=== PATIENT | female | born 1985 | race African-American/Black ===

== ENCOUNTER 2017-09-12 15:59 | Emergency (ER) | payer MEDICAID ==
[~2017-09-12] VITALS: Ht 170.2 cm; Wt 81.6 kg
[~2017-09-12 15:59] MED LIST: AMOX500T2 PO; HYDR-552 PO; IBUP-1955 PO
[2017-09-12] MEDS ORDERED: ONDANSETRON 4 MG/2 ML VIAL IV ONE (17:00)
[2017-09-12] MEDS ORDERED: IV NORMAL SALINE 1000 ML BAG IV ONE (17:00)
[2017-09-12] MEDS ORDERED: HYDROMORPHONE 1 MG/1 ML DISP.SYRIN IV ONE (17:00)
[2017-09-12] MEDS ORDERED: HYDROMORPHONE 2 MG/1 ML DISP.SYRIN ONE (17:06)
[2017-09-12] MEDS ORDERED: ONDANSETRON 4 MG/2 ML VIAL ONE (17:06)
[2017-09-12 17:10] LABS: *BILIRUBIN,URIN NEGATIVE (NEGATIVE); *BLOOD, URINE Trace-lysed (NEGATIVE); *CLARITY,URINE CLEAR (CLEAR); *COLOR,URINE YELLOW (YELLOW); *KETONES,URINE TRACE (NEGATIVE); *PROTEIN,URINE NEGATIVE (NEGATIVE); *UROBILINOGEN,URINE 0.2 E.U./dl (NORMAL); LEUKOCYTE ESTERASE ,URINE NEGATIVE (NEGATIVE); NITRITE, URINE NEGATIVE (NEGATIVE); UGLUCOSE NEGATIVE (NEGATIVE)
[2017-09-12 17:22] LABS: BACTERIA,URINE MODERATE /HPF (NONE SEEN); SQUAMOUS EPITHELIAL CELL,UR MODERATE /HPF (NONE SEEN); WBC,URINE 0-3 /HPF (0-3)
[2017-09-12 17:25] LABS: CREATININE 0.8 mg/dL (0.6-1.3); POTASSIUM 3.6 mmol/L (3.5-5.1)
[2017-09-12 17:26] LABS: BASOPHILS % (AUTO) 0.4 % (0.0-2.0); EOSINOPHILS # (AUTO) 0.1 K/uL (0.0-0.7); HEMATOCRIT 35.8 % (31.2-41.9); HEMOGLOBIN 12.3 g/dL (10.9-14.3); LYMPHOCYTES # (AUTO) 1.8 K/uL (20.0-40.0); LYMPHOCYTES % (AUTO) 23.1 % (20.5-51.5); MEAN CORPUSCULAR HEMOGLOBIN 33.5 uug (24.7-32.8); MEAN CORPUSCULAR HGB CONC 34 g/dL (32.3-35.6); MEAN CORPUSCULAR VOLUME 97.3 fL (75.5-95.3); MONOCYTES # (AUTO) 0.5 K/uL (2.0-10.0); MONOCYTES % (AUTO) 6.4 % (0.0-11.0); NEUTROPHILS # (AUTO) 5.5 K/uL (1.8-8.9); NEUTROPHILS % (AUTO) 69.1 % (38.5-71.5); PLATELET COUNT (AUTO) 212 K/uL (179-408); RED BLOOD CELL COUNT(AUTO) 3.67 MIL/uL (3.63-4.92); WHITE BLOOD COUNT (AUTO) 7.9 K/uL (3.8-11.8)
[2017-09-12 17:30] LABS: BILIRUBIN,DIRECT 0.1 mg/dL (0.0-0.2); BILIRUBIN,TOTAL 0.4 mg/dL (0.2-1.0); TOTAL PROTEIN, SERUM 7.3 g/dL (6.4-8.2)
--- NOTE | 2017-09-12 18:02 | NUR ---
Pt left ER for CT.
--- NOTE | 2017-09-12 19:18 | NUR ---
RECEIVED REPORT FROM RADHA VENTURA
--- NOTE | 2017-09-12 19:26 | NUR ---
PT IN BED. PT IS A&OX4. PT'S BREATH SOUNDS ARE REGULAR AND UNLABORED. NO SIGNS OF DISTRESS WITNESSED AT THIS TIME.
--- NOTE | 2017-09-12 19:35 | NUR ---
Patient discharged to home in stable conditon. Written and verbal after care instructions given. Patient verbalizes understanding of instructions. Patient reported reduced abdominal pain prior to discharge. Patient peripheral IV was removed. Patient able to ambulate unassisted with steady gait. Patient left with all personal belongings.
[2017-09-12 19:37] VITALS: BP 150/62
== END 2017-09-12 19:35 | disposition home or self-care (01) ==
LOC: ER 16:01
DX: R10.33 Periumbilical pain (principal); Z79.1 Long term (current) use of non-steroidal anti-inflammatories (NSAID); Z79.2 Long term (current) use of antibiotics; Z79.891 Long term (current) use of opiate analgesic
CPT/HCPCS: 36415; 74176; 80048; 80076; 81001; 83690; 84703; 85025; 96361; 96374; 96375; 99285; A4663; J1170; J2405

== ENCOUNTER 2017-10-04 23:05 | Emergency (ER) | payer MEDICAID ==
[~2017-10-04] VITALS: Ht 172.7 cm; Wt 81.6 kg
[2017-10-04] MEDS ORDERED: PIPERACILLIN/TAZO 4.5 GM VIAL IV ONE (23:08)
[2017-10-05] MEDS ORDERED: KETOROLAC TROMETHAMINE 30 MG INJ IM ONE
[2017-10-05] MEDS ORDERED: KETOROLAC TROMETHAMINE 30 MG INJ ONE (00:05)
[2017-10-05 00:14] LABS: BASOPHILS % (AUTO) 0.5 % (0.0-2.0); EOSINOPHILS # (AUTO) 0.1 K/uL (0.0-0.7); EOSINOPHILS % (AUTO) 0.7 % (0.0-7.0); HEMATOCRIT 34.1 % (31.2-41.9); HEMOGLOBIN 12.2 g/dL (10.9-14.3); LYMPHOCYTES # (AUTO) 1.8 K/uL (20.0-40.0); LYMPHOCYTES % (AUTO) 20.4 % (20.5-51.5); MEAN CORPUSCULAR HEMOGLOBIN 34.6 uug (24.7-32.8); MEAN CORPUSCULAR HGB CONC 36 g/dL (32.3-35.6); MEAN CORPUSCULAR VOLUME 96.4 fL (75.5-95.3); MONOCYTES # (AUTO) 0.5 K/uL (2.0-10.0); MONOCYTES % (AUTO) 5.1 % (0.0-11.0); NEUTROPHILS # (AUTO) 6.6 K/uL (1.8-8.9); NEUTROPHILS % (AUTO) 73.3 % (38.5-71.5); PLATELET COUNT (AUTO) 241 K/uL (179-408); RED BLOOD CELL COUNT(AUTO) 3.54 MIL/uL (3.63-4.92)
[2017-10-05 00:16] LABS: CREATININE 0.9 mg/dL (0.6-1.3); POTASSIUM 3.6 mmol/L (3.5-5.1)
[2017-10-05 00:29] LABS: BILIRUBIN,DIRECT 0.1 mg/dL (0.0-0.2); BILIRUBIN,TOTAL 0.4 mg/dL (0.2-1.0); TOTAL PROTEIN, SERUM 7.2 g/dL (6.4-8.2)
--- NOTE | 2017-10-05 01:50 | NUR ---
Patient discharged to home in stable conditon. Written and verbal after care instructions given. Patient verbalizes understanding of instructions. Pt left ER in steady gait accompanied by friend. All belongings with pt. VSS. No acute distress noted.
[2017-10-05] MEDS ORDERED: HYDROCODONE/APAP 5-325MG TABLET ONE (01:52)
[2017-10-05 05:34] VITALS: BP 109/77
[2017-10-06] MEDS ORDERED: HYDROCODONE/APAP 5-325MG TABLET PO ONE (02:45)
== END 2017-10-05 01:50 | disposition home or self-care (01) ==
LOC: ER 23:08
DX: J40 Bronchitis, not specified as acute or chronic (principal); M79.1 Myalgia; Z79.1 Long term (current) use of non-steroidal anti-inflammatories (NSAID); Z79.2 Long term (current) use of antibiotics; Z79.891 Long term (current) use of opiate analgesic
CPT/HCPCS: 36415; 71045; 80048; 80076; 83880; 84484; 84703; 85025; 85379; 85730; 93005; 96372; 99285; A4663; J1885; J2543; 70030-TC

== ENCOUNTER 2017-10-23 13:58 | Emergency (ER) | payer MEDICAID ==
[~2017-10-23] VITALS: Ht 172.7 cm; Wt 77.1 kg
[2017-10-23] MEDS ORDERED: KETOROLAC TROMETHAMINE 15 MG INJ IV ONE (14:30)
[2017-10-23] MEDS ORDERED: ONDANSETRON 4 MG/2 ML VIAL IV ONE (14:30)
[2017-10-23] MEDS ORDERED: IV NORMAL SALINE 1000 ML BAG IV ONE (14:30)
[2017-10-23] MEDS ORDERED: KETOROLAC TROMETHAMINE 30 MG INJ ONE (14:36)
[2017-10-23] MEDS ORDERED: ONDANSETRON 4 MG/2 ML VIAL ONE (14:36)
[2017-10-23 14:41] LABS: BASOPHILS % (AUTO) 0.6 % (0.0-2.0); EOSINOPHILS # (AUTO) 0.1 K/uL (0.0-0.7); HEMATOCRIT 39.3 % (31.2-41.9); HEMOGLOBIN 13.3 g/dL (10.9-14.3); LYMPHOCYTES # (AUTO) 1.4 K/uL (20.0-40.0); LYMPHOCYTES % (AUTO) 18.1 % (20.5-51.5); MEAN CORPUSCULAR HEMOGLOBIN 32.6 uug (24.7-32.8); MEAN CORPUSCULAR HGB CONC 34 g/dL (32.3-35.6); MEAN CORPUSCULAR VOLUME 96.5 fL (75.5-95.3); MONOCYTES # (AUTO) 0.5 K/uL (2.0-10.0); MONOCYTES % (AUTO) 6.6 % (0.0-11.0); NEUTROPHILS # (AUTO) 5.6 K/uL (1.8-8.9); NEUTROPHILS % (AUTO) 73.7 % (38.5-71.5); PLATELET COUNT (AUTO) 265 K/uL (179-408); RED BLOOD CELL COUNT(AUTO) 4.07 MIL/uL (3.63-4.92); WHITE BLOOD COUNT (AUTO) 7.5 K/uL (3.8-11.8)
[2017-10-23 14:46] LABS: CREATININE 0.8 mg/dL (0.6-1.3); POTASSIUM 4.2 mmol/L (3.5-5.1)
[2017-10-23 14:52] LABS: BILIRUBIN,DIRECT 0.1 mg/dL (0.0-0.2); BILIRUBIN,TOTAL 0.6 mg/dL (0.2-1.0)
--- NOTE | 2017-10-23 14:57 | NUR ---
PATIENT WAS SEEN BY MD FOR C/O ABDOMINAL PAIN AND NAUSEA. PAIN AND NAUSEA MEDS GIVEN ORDERED. PATIENT STATES PAIN AND NAUSEA HAVE DIMINISHED.
--- NOTE | 2017-10-23 15:18 | NUR ---
uRINE SENT TO LAB. PT STATES PAIN IS "BAD AGAIN". DR CRAMER IN ROOM SPEAKING TO PATIENT
[2017-10-23] MEDS ORDERED: MORPHINE SULFATE 2 MG/1 ML DISP.SYRIN IV ONE (15:30)
[2017-10-23] MEDS ORDERED: MORPHINE SULFATE 2 MG/1 ML DISP.SYRIN ONE (15:33)
[2017-10-23 15:58] LABS: *BILIRUBIN,URIN NEGATIVE (NEGATIVE); *BLOOD, URINE Trace-intact (NEGATIVE); *CLARITY,URINE SLIGHTLY CLOUDY (CLEAR); *COLOR,URINE YELLOW (YELLOW); *KETONES,URINE TRACE (NEGATIVE); *PROTEIN,URINE 1+ (NEGATIVE); *UROBILINOGEN,URINE 0.2 E.U./dl (NORMAL); LEUKOCYTE ESTERASE ,URINE NEGATIVE (NEGATIVE); NITRITE, URINE NEGATIVE (NEGATIVE); UGLUCOSE NEGATIVE (NEGATIVE)
[2017-10-23 16:05] LABS: *URINE HCG, QUAL NEGATIVE (NEGATIVE)
[2017-10-23 16:06] LABS: BACTERIA,URINE MODERATE /HPF (NONE SEEN); SQUAMOUS EPITHELIAL CELL,UR FEW /HPF (NONE SEEN)
--- NOTE | 2017-10-23 16:25 | NUR ---
PATIENT STATES PAIN HAS DIMINISHED SIGNIFICANTLY. SHE IS AWAKE AND ALERT.
--- NOTE | 2017-10-23 16:41 | NUR ---
IV DC'D, CATHETER TIP INTACT, PRESSURE APPLIED, DRESSING APPLIED. DC, RX (INCLUDING PRECAUTIONS) AND FOLLOW UP INSTRUCTIONS GIVEN AND EXPLAINED TO PATIENT WHO STATES SHE UNDERSTANDS ALL INSTRUCTIONS.
== END 2017-10-23 16:45 | disposition home or self-care (01) ==
LOC: ER 13:59
DX: K80.20 Calculus of gallbladder without cholecystitis without obstruction (principal); R19.7 Diarrhea, unspecified; Z79.1 Long term (current) use of non-steroidal anti-inflammatories (NSAID); Z79.2 Long term (current) use of antibiotics; Z79.891 Long term (current) use of opiate analgesic
CPT/HCPCS: 36415; 80048; 80076; 81001; 83690; 84703; 85025; 96361; 96374; 96375; 99285; A4663; J1885; J2270; J2405

== ENCOUNTER 2019-01-27 17:20 | Inpatient (IN) | payer MEDICAID ==
[~2019-01-27] VITALS: Ht 175.3 cm; Wt 73.6 kg
--- NOTE | 2019-01-27 17:20 | NUR ---
at bedside to examine patient.
[2019-01-27] MEDS ORDERED: IBUPROFEN 800 MG TABLET PO ONE (18:00)
[2019-01-27] MEDS ORDERED: ACETAMINOPHEN ES 500 MG TABLET PO ONE (18:00)
[2019-01-27] MEDS ORDERED: ALBUTEROL SULFATE 2.5 MG/3 ML NEBU NEB ONE (18:00)
[2019-01-27] MEDS ORDERED: IPRATROPIUM BROMIDE 0.5 MG/2.5 ML NEBU NEB ONE (18:00)
[2019-01-27] MEDS ORDERED: IBUPROFEN 800 MG TABLET ONE (18:03)
[2019-01-27] MEDS ORDERED: ACETAMINOPHEN ES 500 MG TABLET ONE (18:03)
[2019-01-27] MEDS ORDERED: ALBUTEROL SULFATE 2.5 MG/ 0.5 ML NEBU ONE (18:08)
[2019-01-27] MEDS ORDERED: IPRATROPIUM BROMIDE 0.5 MG/2.5 ML NEBU ONE (18:08)
--- NOTE | 2019-01-27 18:52 | NUR ---
report given to incoming shift.
--- NOTE | 2019-01-27 18:52 | NUR ---
Patient instructed to collect urine as ordered by .
--- NOTE | 2019-01-27 19:07 | NUR ---
Patient back in room from Radiology.
[2019-01-27 19:21] LABS: *URINE HCG, QUAL NEGATIVE (NEGATIVE)
[2019-01-27 19:59] LABS: BASOPHILS % (AUTO) 0.3 % (0.0-2.0); EOSINOPHILS # (AUTO) 0.2 K/uL (0.0-0.7); EOSINOPHILS % (AUTO) 1.9 % (0.0-7.0); HEMATOCRIT 36.9 % (31.2-41.9); HEMOGLOBIN 12.5 g/dL (10.9-14.3); LYMPHOCYTES # (AUTO) 1.4 K/uL (20.0-40.0); LYMPHOCYTES % (AUTO) 13.5 % (20.5-51.5); MEAN CORPUSCULAR HGB CONC 34 g/dL (32.3-35.6); MEAN CORPUSCULAR VOLUME 103.4 fL (75.5-95.3); MONOCYTES # (AUTO) 0.7 K/uL (2.0-10.0); MONOCYTES % (AUTO) 6.4 % (0.0-11.0); NEUTROPHILS # (AUTO) 8.1 K/uL (1.8-8.9); NEUTROPHILS % (AUTO) 77.9 % (38.5-71.5); PLATELET COUNT (AUTO) 238 K/uL (179-408); RED BLOOD CELL COUNT(AUTO) 3.57 MIL/uL (3.63-4.92); WHITE BLOOD COUNT (AUTO) 10.4 K/uL (3.8-11.8)
[2019-01-27 20:09] LABS: CREATININE 0.9 mg/dL (0.6-1.3); POTASSIUM 3.7 mmol/L (3.5-5.1)
[2019-01-27] MEDS ORDERED: CLOPIDOGREL 75 MG TABLET PO ONE (20:45)
[2019-01-27] MEDS ORDERED: ASPIRIN 325 MG TABLET PO ONE (20:45)
[2019-01-27] MEDS ORDERED: ASPIRIN 325 MG TABLET ONE (20:55)
[2019-01-27] MEDS ORDERED: CLOPIDOGREL 75 MG TABLET ONE (20:56)
--- NOTE | 2019-01-27 22:10 | NUR ---
Adriel at bedside for assessment.
[2019-01-27] MEDS ORDERED: IV 1/2NS 1000 ML 1,000 ML IV PRN (22:13)
[2019-01-27] MEDS ORDERED: HYDROCODONE/APAP 5-325MG TABLET PO PRN ×2 (22:15→22:45)
[2019-01-27] MEDS ORDERED: ACETAMINOPHEN 325 MG TABLET PO PRN (22:15)
[2019-01-27] MEDS ORDERED: ALBUTEROL SULFATE 2.5 MG/3 ML NEBU NEB PRN (22:15)
[2019-01-27] MEDS ORDERED: TEMAZEPAM 15 MG CAPSULE PO PRN (22:15)
[2019-01-27] MEDS ORDERED: MAGNESIUM HYDROXIDE 30 ML LIQUID UDC PO PRN (22:15)
[2019-01-27] MEDS ORDERED: ONDANSETRON 4 MG/2 ML VIAL IV PRN (22:15)
--- NOTE | 2019-01-27 22:19 | NUR ---
Report given to RADHA Hester
[2019-01-27] MEDS ORDERED: HYDROCODONE/APAP 5-325MG TABLET ONE (22:24)
--- NOTE | 2019-01-27 22:45 | NUR ---
Patient is a 33 y/o female admitted to telemetry from ED. Diagnosis is chest pain and EKG abnormalities. Patient stable upon arrival. Vitals taken, within normal. Tele monitor attached to patient, sinus rhythm on monitor. Patient displays no SOB. IV in tact and patent. Admission protocols in place. Obtained medical history. Will continue to monitor patient.
--- NOTE | 2019-01-27 22:54 | NUR ---
Patient transported to TELE in stable condition.
[2019-01-27 23:00] VITALS: BP 124/73
[2019-01-28 00:26] VITALS: BP 120/83
[2019-01-28 05:42] VITALS: BP 116/78
--- NOTE | 2019-01-28 06:40 | NUR ---
Patient slept well throughout the night. No acute change in patient condition. Complaint of chest pain r/t cough and pain management carried out properly. No respiratory distress. Vital signs within normal. Sinus rhythm on tele. Will endorse care to oncoming shift.
[2019-01-28] MEDS ORDERED: PANTOPRAZOLE SODIUM 40 MG TABLET.DR PO SCH (07:00)
[2019-01-28 07:36] LABS: BASOPHILS % (AUTO) 0.5 % (0.0-2.0); EOSINOPHILS # (AUTO) 0.2 K/uL (0.0-0.7); EOSINOPHILS % (AUTO) 2.5 % (0.0-7.0); HEMATOCRIT 36.1 % (31.2-41.9); HEMOGLOBIN 12.5 g/dL (10.9-14.3); LYMPHOCYTES # (AUTO) 1.6 K/uL (20.0-40.0); LYMPHOCYTES % (AUTO) 19.1 % (20.5-51.5); MEAN CORPUSCULAR HGB CONC 35 g/dL (32.3-35.6); MONOCYTES # (AUTO) 0.6 K/uL (2.0-10.0); MONOCYTES % (AUTO) 7.3 % (0.0-11.0); NEUTROPHILS # (AUTO) 5.8 K/uL (1.8-8.9); NEUTROPHILS % (AUTO) 70.6 % (38.5-71.5); PLATELET COUNT (AUTO) 242 K/uL (179-408); RED BLOOD CELL COUNT(AUTO) 3.58 MIL/uL (3.63-4.92); WHITE BLOOD COUNT (AUTO) 8.3 K/uL (3.8-11.8)
--- NOTE | 2019-01-28 07:45 | NUR ---
Received patient awake in bed. AAOx4. Complaining of chest pain and leg hip/leg pain at this time; will assess further and medicate appropriately. No SOB noted. IV on R AC intact and patent with IVF running at this time. Safety measures implemented. Call light within reach. Will continue to monitor throughout shift.
[2019-01-28 08:04] LABS: THYROID STIMULATING HORMONE 2.431 mIU/mL (0.358-3.740)
[2019-01-28] MEDS: MORPHINE SULFATE 2 MG/1 ML DISP.SYRIN IV PRN ×2 (08:10→12:11)
[2019-01-28 08:11] LABS: BILIRUBIN,TOTAL 0.2 mg/dL (0.2-1.0); CREATININE 0.9 mg/dL (0.6-1.3); MAGNESIUM 1.9 mg/dL (1.8-2.4); PHOSPHOROUS 3.9 mg/dL (2.5-4.9); POTASSIUM 3.6 mmol/L (3.5-5.1); TOTAL PROTEIN, SERUM 6.7 g/dL (6.4-8.2)
[2019-01-28] MEDS ORDERED: ASPIRIN EC 81 MG TABLET.DR PO SCH (09:00)
[2019-01-28] MEDS ORDERED: GUAIFENESIN/DEXTROMETHORPHAN 5 ML UDC PO PRN (09:15)
[2019-01-28 11:53] VITALS: BP 125/78
--- NOTE | 2019-01-28 14:50 | NUR ---
Patient cleared by cardio. Discharge orders in place. Vital signs are stabe. No s/s of acute distress; no SOB noted. Educated patient regarding plan of care to relieve cough with use of otc cough medicine that is precipitating chest pain. Exit care provided. ID band and IV access removed. Patient discharged to home.
== END 2019-01-28 14:50 | disposition home or self-care (01) | DRG 113 ==
LOC: ER 17:29 → TELE3 22:29
PROVIDERS: ADMIT Nurse Practitioner Acute Care; ATTEND Nurse Practitioner Acute Care
DX: J06.9 Acute upper respiratory infection, unspecified (principal); E83.51 Hypocalcemia; R94.31 Abnormal electrocardiogram [ECG] [EKG]; R07.89 Other chest pain; F12.90 Cannabis use, unspecified, uncomplicated
CPT/HCPCS: 36415; 70030-TC; 71046; 83735; 84100; 84443; 84703; 85025; 93005; 94640; A4663; A9150; G0378; J2270; J3490; J3590

== ENCOUNTER 2019-03-19 09:09 | Emergency (ER) | payer MEDICAID ==
[~2019-03-19] VITALS: Ht 170.2 cm; Wt 72.6 kg
[2019-03-19] MEDS ORDERED: KETOROLAC TROMETHAMINE 15 MG INJ IVP ONE (10:30)
[2019-03-19] MEDS ORDERED: IV NORMAL SALINE 1000 ML BAG IV ONE (10:30)
[2019-03-19] MEDS ORDERED: KETOROLAC TROMETHAMINE 15 MG INJ ONE (10:38)
[2019-03-19 11:07] LABS: BASOPHILS % (AUTO) 0.3 % (0.0-2.0); HEMATOCRIT 38.2 % (31.2-41.9); HEMOGLOBIN 13.1 g/dL (10.9-14.3); LYMPHOCYTES # (AUTO) 1.7 K/uL (20.0-40.0); LYMPHOCYTES % (AUTO) 41.1 % (20.5-51.5); MEAN CORPUSCULAR HEMOGLOBIN 33.6 uug (24.7-32.8); MEAN CORPUSCULAR HGB CONC 34 g/dL (32.3-35.6); MONOCYTES # (AUTO) 0.4 K/uL (2.0-10.0); NEUTROPHILS # (AUTO) 1.9 K/uL (1.8-8.9); NEUTROPHILS % (AUTO) 47.6 % (38.5-71.5); PLATELET COUNT (AUTO) 207 K/uL (179-408); WHITE BLOOD COUNT (AUTO) 4.1 K/uL (3.8-11.8)
[2019-03-19 11:13] LABS: CREATININE 0.7 mg/dL (0.6-1.3); POTASSIUM 4.1 mmol/L (3.5-5.1)
[2019-03-19 11:29] LABS: BILIRUBIN,DIRECT 0.1 mg/dL (0.0-0.2); BILIRUBIN,TOTAL 0.3 mg/dL (0.2-1.0); TOTAL PROTEIN, SERUM 7.2 g/dL (6.4-8.2)
[2019-03-19] MEDS ORDERED: ACETAMINOPHEN/CODEINE 120-12 MG PER 5 ML LIQUID UDC PO ONE (12:15)
[2019-03-19] MEDS ORDERED: predniSONE 20 MG TABLET PO ONE (12:15)
[2019-03-19] MEDS ORDERED: ACETAMINOPHEN/CODEINE 120-12 MG PER 5 ML LIQUID UDC ONE (12:17)
[2019-03-19] MEDS ORDERED: predniSONE 50 MG TABLET ONE (12:17)
[2019-03-19] MEDS ORDERED: predniSONE 10 MG TABLET ONE (12:17)
--- NOTE | 2019-03-19 12:33 | NUR ---
Patient discharged to home in stable conditon. Written and verbal after care instructions given. Patient verbalizes understanding of instructions.pt walks in steady gait. pt with so, pt not driving.copy of all the studies provided for pt for follow up.
[2019-03-19 12:34] VITALS: BP 111/79
== END 2019-03-19 12:35 | disposition home or self-care (01) ==
LOC: ER 09:09
DX: J45.909 Unspecified asthma, uncomplicated (principal); R07.89 Other chest pain
CPT/HCPCS: 36415; 71045; 80048; 80076; 83880; 84484; 84702; 85025; 85379; 85730; 93005; 96374; 99284; J1885; J7512 ×2; 70030-TC; A4663; J7030

== ENCOUNTER 2020-04-03 10:04 | Emergency (ER) | payer SELFPAY ==
[~2020-04-03] VITALS: Ht 172.7 cm; Wt 72.6 kg
--- NOTE | 2020-04-03 10:10 | NUR ---
PATIENT WAS MSE BY DR SOLIS IN ROOM 04A. PATIENT A & O X3.
--- NOTE | 2020-04-03 10:14 | NUR ---
Urine collected and sent to lab.
[2020-04-03 10:32] LABS: *BILIRUBIN,URIN NEGATIVE (NEGATIVE); *CLARITY,URINE CLEAR (CLEAR); *COLOR,URINE YELLOW (YELLOW); *KETONES,URINE NEGATIVE (NEGATIVE); *UROBILINOGEN,URINE 0.2 E.U./dl (NORMAL); LEUKOCYTE ESTERASE ,URINE NEGATIVE (NEGATIVE); NITRITE, URINE NEGATIVE (NEGATIVE); UGLUCOSE NEGATIVE (NEGATIVE)
[2020-04-03 10:34] LABS: *BLOOD, URINE TRACE (NEGATIVE); *URINE HCG, QUAL NEG (NEGATIVE)
[2020-04-03] MEDS ORDERED: ACETAMINOPHEN 325 MG TABLET ONE (10:45)
[2020-04-03] MEDS ORDERED: ACETAMINOPHEN 325 MG TABLET PO ONE (10:45)
--- NOTE | 2020-04-03 12:40 | NUR ---
DR SOLIS AT BEDSIDE MADE PATIENT AWARE OF TEST RESULTS WILL DC HOME.
[2020-04-03 12:50] VITALS: BP 109/78
--- NOTE | 2020-04-03 12:50 | NUR ---
Patient discharged to home in stable condition. Written and verbal after care instructions given. Patient verbalizes understanding of instructions. Stressed follow up or return to ER for worsening s/s.
[2020-04-05 18:16] LABS: BACTERIA,URINE FEW /HPF (NONE SEEN); RBC,URINE 0-3 /HPF (0-3); SQUAMOUS EPITHELIAL CELL,UR FEW /HPF (NONE SEEN); WBC,URINE 0-3 /HPF (0-3)
== END 2020-04-03 12:50 | disposition home or self-care (01) ==
LOC: ER 10:04
DX: J40 Bronchitis, not specified as acute or chronic (principal); Z20.828 Contact with and (suspected) exposure to other viral communicable diseases
CPT/HCPCS: 71045; 84703; A4663

== ENCOUNTER 2020-06-18 10:15 | Emergency (ER) | payer MEDICAID ==
[~2020-06-18] VITALS: Ht 172.7 cm; Wt 72.6 kg
[2020-06-18] MEDS ORDERED: IV NORMAL SALINE 1000 ML BAG IV ONE (11:45)
[2020-06-18 11:54] LABS: BASOPHILS % (AUTO) 0.8 % (0.0-2.0); EOSINOPHILS # (AUTO) 0.2 K/uL (0.0-0.7); EOSINOPHILS % (AUTO) 4.1 % (0.0-7.0); HEMOGLOBIN 12.5 g/dL (10.9-14.3); LYMPHOCYTES # (AUTO) 1.5 K/uL (20.0-40.0); LYMPHOCYTES % (AUTO) 28.2 % (20.5-51.5); MEAN CORPUSCULAR HEMOGLOBIN 34.5 uug (24.7-32.8); MEAN CORPUSCULAR HGB CONC 35 g/dL (32.3-35.6); MEAN CORPUSCULAR VOLUME 99.6 fL (75.5-95.3); MONOCYTES # (AUTO) 0.4 K/uL (2.0-10.0); MONOCYTES % (AUTO) 7.6 % (0.0-11.0); NEUTROPHILS # (AUTO) 3.2 K/uL (1.8-8.9); NEUTROPHILS % (AUTO) 59.3 % (38.5-71.5); PLATELET COUNT (AUTO) 246 K/uL (179-408); RED BLOOD CELL COUNT(AUTO) 3.61 MIL/uL (3.63-4.92); WHITE BLOOD COUNT (AUTO) 5.4 K/uL (3.8-11.8)
--- NOTE | 2020-06-18 12:13 | NUR ---
PT IS IN ROOM #1B. DR ACEVEDO EVALUATED THE PT.
[2020-06-18 12:22] LABS: ALANINE AMINOTRANSFERASE 19 U/L (14-59); ALKALINE PHOSPHATASE 50 U/L (50-136); ASPARTATE AMINOTRANSFERASE 13 U/L (15-37); BILIRUBIN,DIRECT 0.1 mg/dL (0.0-0.2); BILIRUBIN,TOTAL 0.4 mg/dL (0.2-1.0); CARBON DIOXIDE 26 mmol/L (21-32); CHLORIDE 104 mmol/L (98-107); CREATININE 0.7 mg/dL (0.6-1.3); GLUCOSE 89 mg/dL (74-106); LIPASE 103 U/L (73-393); POTASSIUM 4.1 mmol/L (3.5-5.1); TOTAL PROTEIN, SERUM 6.8 g/dL (6.4-8.2); UREA NITROGEN, BLOOD 9 mg/dL (7-18)
[2020-06-18 12:48] LABS: *BILIRUBIN,URIN NEGATIVE (NEGATIVE); *BLOOD, URINE NEGATIVE (NEGATIVE); *CLARITY,URINE CLEAR (CLEAR); *COLOR,URINE YELLOW (YELLOW); *KETONES,URINE NEGATIVE (NEGATIVE); *UROBILINOGEN,URINE 0.2 E.U./dl (NORMAL); LEUKOCYTE ESTERASE ,URINE NEGATIVE (NEGATIVE); NITRITE, URINE NEGATIVE (NEGATIVE); PH,URINE 8.5 (5.0-8.0); UGLUCOSE NEGATIVE (NEGATIVE)
[2020-06-18] MEDS ORDERED: IOHEXOL 300MG/ML 100 ML INFUS..BTL ONE (12:54)
[2020-06-18] MEDS ORDERED: IV NORMAL SALINE 250 ML IV ONE (12:54)
[2020-06-18] MEDS ORDERED: SWABABLE VALVE TRANSFER SET EA MC ONE (12:54)
[2020-06-18] MEDS ORDERED: KETOROLAC TROMETHAMINE 15 MG INJ IVP ONE (14:15)
[2020-06-18] MEDS ORDERED: KETOROLAC TROMETHAMINE 15 MG INJ ONE (14:35)
[2020-06-18] MEDS ORDERED: NAPR-1164 PO (14:48)
[2020-06-18 16:14] VITALS: BP 132/71
--- NOTE | 2020-06-18 16:15 | NUR ---
PT WAS EVALUATED BY DR ACEVEDO. PT WAS D/C'd TO HOME. D/C INSTRUCTIONS GIVEN TO THE PT BY DR ACEVEDO.
== END 2020-06-18 16:17 | disposition home or self-care (01) ==
LOC: ER 10:15
DX: R10.12 Left upper quadrant pain (principal); Z86.16 Personal history of COVID-19; Z87.09 Personal history of other diseases of the respiratory system; Z86.61 Personal history of infections of the central nervous system; Z82.49 Family history of ischemic heart disease and other diseases of the circulatory system; R94.8 Abnormal results of function studies of other organs and systems
CPT/HCPCS: 36415; 71045; 74177; 80048; 80076; 81003; 83690; 84484; 84702; 85025; 96361; 96374; 99285; J1885; Q9967; 70030-TC; A4663; J7030; J7050

== ENCOUNTER 2020-08-17 23:47 | Emergency (ER) | payer MEDICAID ==
[~2020-08-17] VITALS: Ht 172.7 cm; Wt 77.1 kg
[~2020-08-17 23:47] MED LIST changes: -AMOX500T2 PO; -HYDR-552 PO; -IBUP-1955 PO; +NAPR-1164 PO
--- NOTE | 2020-08-18 00:02 | NUR ---
Dr. Zapata at bedside for MSE.
--- NOTE | 2020-08-18 00:28 | NUR ---
Xray at bedside.
[2020-08-18] MEDS ORDERED: OXYC5CAP18 PO (01:20)
[2020-08-18] MEDS ORDERED: IBUP-1955 PO (01:20)
[2020-08-18 01:50] VITALS: BP 142/80
--- NOTE | 2020-08-18 01:50 | NUR ---
Patient discharged to home in stable condition. Written and verbal after care instructions given. Patient verbalizes understanding of instructions. Stressed follow up or return to ER for worsening s/s. Patient out of ER with steady gait, no acute signs of distress, VSS, all belongings taken.
== END 2020-08-18 01:50 | disposition home or self-care (01) ==
LOC: ER 23:52
DX: S92.314A Nondisplaced fracture of first metatarsal bone, right foot, initial encounter for closed fracture (principal); W18.41XA Slipping, tripping and stumbling without falling due to stepping on object, initial encounter; Y92.89 Other specified places as the place of occurrence of the external cause; M25.571 Pain in right ankle and joints of right foot; Z86.61 Personal history of infections of the central nervous system; Z86.16 Personal history of COVID-19
CPT/HCPCS: 73610; 73630; 73660; A4663

== ENCOUNTER 2022-09-30 14:34 | Emergency (ER) | payer MEDICAID, OTHER ==
[~2022-09-30] VITALS: Ht 170.2 cm; Wt 77.1 kg
[~2022-09-30 14:34] MED LIST changes: +IBUP-1955 PO; +OXYC5CAP18 PO
[2022-09-30] MEDS ORDERED: KETOROLAC TROMETHAMINE 15 MG INJ IM ONE (15:00)
[2022-09-30] MEDS ORDERED: DEXAMETHASONE SOD PHOSPHATE 4 MG INJ IM ONE (15:00)
[2022-09-30] MEDS ORDERED: DEXAMETHASONE SOD PHOSPHATE 4 MG INJ ONE (15:21)
[2022-09-30] MEDS ORDERED: KETOROLAC TROMETHAMINE 15 MG INJ ONE (15:22)
[2022-09-30 15:38] LABS: HEMATOCRIT 38.9 % (31.2-41.9); MEAN CORPUSCULAR HEMOGLOBIN 33.1 uug (24.7-32.8); MEAN CORPUSCULAR VOLUME 98.7 fL (75.5-95.3); PLATELET COUNT (AUTO) 301 K/uL (179-408)
--- NOTE | 2022-09-30 15:46 | NUR ---
Swabs sent to lab.
[2022-09-30 15:50] LABS: CARBON DIOXIDE 27 mmol/L (21-32); CHLORIDE 102 mmol/L (98-107); CREATININE 0.7 mg/dL (0.6-1.3); GLUCOSE 86 mg/dL (74-106); POTASSIUM 3.9 mmol/L (3.5-5.1); UREA NITROGEN, BLOOD 9 mg/dL (7-18)
[2022-09-30 15:56] LABS: ALANINE AMINOTRANSFERASE 23 U/L (14-59); ALKALINE PHOSPHATASE 64 U/L (50-136); ASPARTATE AMINOTRANSFERASE 17 U/L (15-37); BILIRUBIN,TOTAL 0.3 mg/dL (0.2-1.0); TOTAL PROTEIN, SERUM 8.2 g/dL (6.4-8.2)
[2022-09-30] MEDS ORDERED: AZIT250T13 PO (17:02)
--- NOTE | 2022-09-30 17:14 | NUR ---
Gave pt RX and d/c instructions, pt verbalized understanding.
== END 2022-09-30 17:17 | disposition home or self-care (01) ==
LOC: ER 14:34
DX: J40 Bronchitis, not specified as acute or chronic (principal); R10.2 Pelvic and perineal pain; R07.89 Other chest pain; Z79.2 Long term (current) use of antibiotics; Z79.1 Long term (current) use of non-steroidal anti-inflammatories (NSAID); Z79.899 Other long term (current) drug therapy; Z20.822 Contact with and (suspected) exposure to COVID-19
CPT/HCPCS: 99284; 71046; 87426; 87804; 80053; 85025; 86403; 84702; 36415; 96372 ×2; J1100; J1885; A4663

== ENCOUNTER 2022-12-08 09:09 | Emergency (ER) | payer OTHER ==
[~2022-12-08] VITALS: Ht 172.7 cm; Wt 81.6 kg
[~2022-12-08 09:09] MED LIST changes: +AZIT250T13 PO
[2022-12-08] MEDS ORDERED: IV NORMAL SALINE 1000 ML BAG IV ONE (09:45)
[2022-12-08] MEDS ORDERED: KETOROLAC TROMETHAMINE 15 MG INJ IVP ONE ×2 (09:45→11:30)
[2022-12-08] MEDS ORDERED: KETOROLAC TROMETHAMINE 15 MG INJ ONE ×2 (09:48→11:32)
[2022-12-08 10:01] LABS: BASOPHILS % (AUTO) 0.5 % (0.0-2.0); EOSINOPHILS # (AUTO) 0.1 K/uL (0.0-0.7); EOSINOPHILS % (AUTO) 1.9 % (0.0-7.0); HEMATOCRIT 35.6 % (31.2-41.9); HEMOGLOBIN 12.3 g/dL (10.9-14.3); LYMPHOCYTES # (AUTO) 1.5 K/uL (0.8-4.8); LYMPHOCYTES % (AUTO) 23.6 % (20.5-51.5); MEAN CORPUSCULAR HGB CONC 35 g/dL (32.3-35.6); MEAN CORPUSCULAR VOLUME 98.4 fL (75.5-95.3); MONOCYTES # (AUTO) 0.4 K/uL (0.1-1.30); MONOCYTES % (AUTO) 5.5 % (0.0-11.0); NEUTROPHILS # (AUTO) 4.4 K/uL (1.8-8.9); NEUTROPHILS % (AUTO) 68.5 % (38.5-71.5); PLATELET COUNT (AUTO) 275 K/uL (179-408); RED BLOOD CELL COUNT(AUTO) 3.61 MIL/uL (3.63-4.92); RED CELL DISTRIBUTION WIDTH 13.6 % (12.3-17.7); WHITE BLOOD COUNT (AUTO) 6.4 K/uL (3.8-11.8)
[2022-12-08 10:11] LABS: DIFFERENTIAL COMMENT 1
[2022-12-08 10:40] LABS: CARBON DIOXIDE 27 mmol/L (21-32); CHLORIDE 102 mmol/L (98-107); POTASSIUM 4.1 mmol/L (3.5-5.1); SODIUM SERUM 137 mmol/L (136-145)
[2022-12-08 10:41] LABS: CALCIUM 8.4 mg/dL (8.5-10.1); CREATININE 0.6 mg/dL (0.6-1.3); GLUCOSE 105 mg/dL (74-106); NT-PRO BNP 30 pg/mL (0-125); UREA NITROGEN, BLOOD 9 mg/dL (7-18)
[2022-12-08] MEDS ORDERED: ACETAMINOPHEN 325 MG TABLET PO ONE (11:30)
[2022-12-08] MEDS ORDERED: CYCLOBENZAPRINE HCL 10 MG TABLET PO ONE (11:30)
[2022-12-08] MEDS ORDERED: ACETAMINOPHEN 325 MG TABLET ONE (11:32)
[2022-12-08] MEDS ORDERED: CYCLOBENZAPRINE HCL 10 MG TABLET ONE (11:32)
[2022-12-08] MEDS ORDERED: MORPHINE SULFATE 4 MG/1 ML DISP.SYRIN ONE (11:33)
[2022-12-08] MEDS ORDERED: IBUP-1955 PO (11:42)
[2022-12-08] MEDS ORDERED: CYCL5TAB PO (11:42)
[2022-12-08] MEDS ORDERED: HYDR-3974 PO (11:42)
[2022-12-08] MEDS ORDERED: MORPHINE SULFATE 4 MG/1 ML DISP.SYRIN IV ONE (11:45)
[2022-12-08] MEDS ORDERED: ONDANSETRON 4 MG/2 ML VIAL IV ONE (11:45)
[2022-12-08 12:12] VITALS: BP 116/77; TEMP 97.9; O2SAT 99
[2022-12-08] MEDS ORDERED: HYDR-3980 PO (12:22)
== END 2022-12-08 12:13 | disposition home or self-care (01) ==
LOC: ER 09:09
DX: R07.89 Other chest pain (principal); R53.83 Other fatigue; Z79.1 Long term (current) use of non-steroidal anti-inflammatories (NSAID); Z79.2 Long term (current) use of antibiotics; Z79.899 Other long term (current) drug therapy; Z20.822 Contact with and (suspected) exposure to COVID-19
CPT/HCPCS: 99285; 96374; 71045; 96361; 96375; 87426; 80048; 83880; 84443; 85025; 85379; 84484; 36415; 93005; J1885 ×2; J2270; J7040; A4663